=== PATIENT | female | born 1970 | race Caucasian/White ===

== ENCOUNTER 2020-11-04 05:11 | Inpatient (IN) | payer SELFPAY ==
[2020-11-04] MEDS ORDERED: Ondansetron PF 4 MG/2 ML Vial ONE (06:01)
[2020-11-04] MEDS ORDERED: Morphine 4 MG/ML VIAL ONE (06:01)
[2020-11-04 06:39] LABS: #Monocytes 0.6 10x3/uL (0.0-1.1); #Neutrophils 7.6 10x3/uL (1.5-8.4); %Basophils 0.3 % (0.0-2.0); %Eosinophils 0.4 % (0.0-6.0); %Lymphocytes 10.9 % (18.0-47.0); %Monocytes 6.2 % (0.0-10.0); %Neutrophils 81.9 % (40.0-75.0); Hemoglobin 10.6 g/dL (12.0-15.5); Mean Corpuscular HGB CONC 29.6 g/dL (32.0-36.0); Mean Corpuscular Hemoglobin 23.1 pg (27.0-33.0); Mean Platelet Volume 9.8 fl (7.4-10.4); Platelet Count 360 10x3/uL (150-450); RBC Distribution Width 18.6 % (11.5-14.5); Red Blood Cell (RBC) Count 4.59 10x6/uL (3.90-5.03); White Blood Cell (WBC) Count 9.2 10x3/uL (3.5-10.5)
[2020-11-04 06:41] LABS: Bilirubin Neg (Negative); Blood, Urine Negative (Negative); Clarity Cloudy (Clear); Glucose, Urine (Dipstick) Normal (Negative); Ketone, Urine Negative (Negative); Leukocyte 100 (Negative); Nitrite Negative (Negative); Protein, Urine (Dipstick) 30 mg/dl (Neg-Trace); Urobilinogen Normal mg/dL (Less than 2)
[2020-11-04 06:49] LABS: Bacteria/HPF 2+ HPF (None Seen); RBC/HPF 0-3 HPF (0-3)
[2020-11-04 06:50] LABS: Mucous/LPF 2+ LPF (<2+)
[2020-11-04 06:59] LABS: Platelet Morphology Comment Appears Adequate
[2020-11-04 07:00] LABS: Anisocytosis SLIGHT = 6-15 cells (100X) (0-5/hpf); Elliptocytes SLIGHT = 2-5 cells (100X) (0-1/hpf); Hypochromia SLIGHT = 6-15 cells (100X) (0-5/hpf); Macrocytosis SLIGHT = 6-15 cells (100X) (0-5/hpf); Microcytosis SLIGHT = 6-15 cells (100X) (0-5/hpf)
[2020-11-04 07:12] LABS: ALT (SGPT) 14 U/L (8-55); AST (SGOT) 19 U/L (5-34); Albumin 4.3 g/dL (3.5-5.0); Alkaline Phosphatase 86 U/L (40-110); Anion Gap 19 mmol/L (10-20); BUN (Urea Nitrogen) 16 mg/dL (7.0-18.7); Bilirubin, Total 0.3 mg/dL (0.2-1.2); Calc. Creatinine Clearance 0 mL/min (70-130); Calcium 9.3 mg/dL (7.8-10.44); Carbon Dioxide 21 mmol/L (22-29); Chloride 103 mmol/L (98-107); Globulin 3.7 g/dL (2.4-3.5); Glucose 150 mg/dL (70-105); Potassium 3.5 mmol/L (3.5-5.1); Sodium 139 mmol/L (136-145)
[2020-11-04] MEDS ORDERED: Piperacillin/Tazobactam 4.5 GM VIAL ONE (08:55)
[2020-11-04] MEDS ORDERED: Senokot S 8.6-50 MG TAB PO PRN (09:36)
[2020-11-04] MEDS ORDERED: Acetaminophen 325 MG TAB PO PRN (09:41)
[2020-11-04 12:10] VITALS: BMI 33.3
[2020-11-04] MEDS: Morphine 4 MG/ML VIAL SLOW IVP PRN ×2 (12:56→17:36)
[2020-11-04] MEDS: Ondansetron PF 4 MG/2 ML Vial IVP PRN (12:57)
[2020-11-04] MEDS: Sodium Chloride 0.9% 1,000 ML IV SCH ×2 (13:33→21:22)
[2020-11-04] MEDS: metroNIDAZOLE 500 MG in Premix Bag 1 BAG IVPB SCH ×2 (14:35→21:24)
[2020-11-04] MEDS ORDERED: Famotidine/PF 20 mg/2ml Vial SLOW IVP SCH (21:00)
[2020-11-04] MEDS: Cefepime 1 GM in Sodium Chloride 0.9% 100 ML IVPB SCH (21:23)
[2020-11-04] MEDS: Pantoprazole 40 MG VIAL IVP SCH (21:24)
[2020-11-05] MEDS: Morphine 4 MG/ML VIAL SLOW IVP PRN (01:33)
[2020-11-05 04:44] LABS: SARS-CoV-2 PCR by NAA Not Detected (NotDetected)
[2020-11-05 04:46] LABS: #Eosinphils 0.1 10x3/uL (0.0-0.5); #Monocytes 0.5 10x3/uL (0.0-1.1); #Neutrophils 3.1 10x3/uL (1.5-8.4); %Basophils 0.5 % (0.0-2.0); %Eosinophils 1.4 % (0.0-6.0); %Lymphocytes 17.2 % (18.0-47.0); %Monocytes 10.6 % (0.0-10.0); %Neutrophils 70.1 % (40.0-75.0); Hemoglobin 8.8 g/dL (12.0-15.5); Mean Corpuscular HGB CONC 29.2 g/dL (32.0-36.0); Mean Corpuscular Hemoglobin 23.2 pg (27.0-33.0); Mean Corpuscular Volume 79.4 fl (81.6-98.3); Mean Platelet Volume 9.7 fl (7.4-10.4); Platelet Count 251 10x3/uL (150-450); RBC Distribution Width 18.9 % (11.5-14.5); Red Blood Cell (RBC) Count 3.79 10x6/uL (3.90-5.03); White Blood Cell (WBC) Count 4.4 10x3/uL (3.5-10.5)
[2020-11-05 04:54] LABS: ALT (SGPT) 22 U/L (8-55); AST (SGOT) 32 U/L (5-34); Albumin 3.4 g/dL (3.5-5.0); Alkaline Phosphatase 82 U/L (40-110); Anion Gap 13 mmol/L (10-20); BUN (Urea Nitrogen) 13 mg/dL (7.0-18.7); Bilirubin, Total 0.4 mg/dL (0.2-1.2); Calc. Creatinine Clearance 116 mL/min (70-130); Carbon Dioxide 23 mmol/L (22-29); Chloride 107 mmol/L (98-107); Globulin 2.7 g/dL (2.4-3.5); Glucose 93 mg/dL (70-105); Potassium 3.7 mmol/L (3.5-5.1); Protein, Total 6.1 g/dL (6.0-8.3); Sodium 139 mmol/L (136-145)
[2020-11-05] MEDS: metroNIDAZOLE 500 MG in Premix Bag 1 BAG IVPB SCH ×3 (05:54→23:31)
[2020-11-05] MEDS: Morphine 2 MG/ML VIAL SLOW IVP PRN ×4 (06:46→21:12)
[2020-11-05] MEDS: Sodium Chloride 0.9% 1,000 ML IV SCH ×2 (08:00→18:14)
[2020-11-05] MEDS ORDERED: Pantoprazole 40 MG VIAL ONE (09:29)
[2020-11-05] MEDS: Cefepime 1 GM in Sodium Chloride 0.9% 100 ML IVPB SCH ×2 (09:46→21:20)
[2020-11-05] MEDS: Pantoprazole 40 MG VIAL IVP SCH ×2 (09:47→21:20)
[2020-11-05] MEDS ORDERED: PROPOFOL 20 ML ONE ×2 (16:56→17:56)
[2020-11-05] MEDS ORDERED: GoLYTELY 4,000 ml Bottle PO SCH (18:00)
[2020-11-05] MEDS ORDERED: Succinylcholine 200 MG/10 ml SYRINGE FS ONE (18:22)
[2020-11-05] MEDS: Ondansetron PF 4 MG/2 ML Vial IVP PRN (21:14)
[2020-11-05] MEDS: Pantoprazole 40 MG VIAL ONE ×2 (21:20→22:50)
[2020-11-06] MEDS: Sodium Chloride 0.9% 1,000 ML IV SCH ×3 (02:56→22:36)
[2020-11-06 05:20] LABS: #Eosinphils 0.1 10x3/uL (0.0-0.5); #Monocytes 0.4 10x3/uL (0.0-1.1); #Neutrophils 1.8 10x3/uL (1.5-8.4); %Basophils 0.3 % (0.0-2.0); %Eosinophils 1.7 % (0.0-6.0); %Lymphocytes 25.3 % (18.0-47.0); %Neutrophils 60.4 % (40.0-75.0); Hemoglobin 8.1 g/dL (12.0-15.5); Mean Corpuscular HGB CONC 28.8 g/dL (32.0-36.0); Mean Corpuscular Volume 79.8 fl (81.6-98.3); Mean Platelet Volume 8.6 fl (7.4-10.4); Platelet Count 195 10x3/uL (150-450); RBC Distribution Width 18.6 % (11.5-14.5); Red Blood Cell (RBC) Count 3.52 10x6/uL (3.90-5.03)
[2020-11-06 05:49] LABS: Anion Gap 11 mmol/L (10-20); BUN (Urea Nitrogen) 8 mg/dL (7.0-18.7); Calc. Creatinine Clearance 138 mL/min (70-130); Calcium 7.8 mg/dL (7.8-10.44); Carbon Dioxide 21 mmol/L (22-29); Chloride 109 mmol/L (98-107); Glucose 79 mg/dL (70-105); Potassium 3.4 mmol/L (3.5-5.1); Sodium 138 mmol/L (136-145)
[2020-11-06 06:03] LABS: Iron Binding Capacity, Total 341 mcg/dL (265-497); Lipase 19 U/L (8-78)
[2020-11-06] MEDS: metroNIDAZOLE 500 MG in Premix Bag 1 BAG IVPB SCH ×3 (06:33→22:37)
[2020-11-06 07:33] LABS: Iron 16 ug/dL (50-170)
[2020-11-06] MEDS: Ondansetron PF 4 MG/2 ML Vial IVP PRN (08:18)
[2020-11-06] MEDS: Cefepime 1 GM in Sodium Chloride 0.9% 100 ML IVPB SCH ×2 (08:19→20:02)
[2020-11-06] MEDS: Pantoprazole 40 MG VIAL IVP SCH ×2 (08:19→20:02)
[2020-11-06 12:00] LABS: Complement-C4 4.1 mg/dL (15-57)
[2020-11-06 13:43] LABS: dsDNA IgG Antibody 1.1 IU/mL (<10 Negative)
[2020-11-06] MEDS ORDERED: PROPOFOL 40 ML ONE (14:22)
[2020-11-06] MEDS ORDERED: Lidocaine 2% MPF 10 ML AMP (For Epidural Use) ONE (15:18)
[2020-11-06] MEDS ORDERED: Hydroxychloroquine Sulfate 200 MG TAB PO SCH (19:08)
[2020-11-07 04:56] LABS: #Monocytes 0.4 10x3/uL (0.0-1.1); %Basophils 0.3 % (0.0-2.0); %Eosinophils 0.6 % (0.0-6.0); %Lymphocytes 27.3 % (18.0-47.0); %Monocytes 10.7 % (0.0-10.0); %Neutrophils 60.8 % (40.0-75.0); Hemoglobin 7.8 g/dL (12.0-15.5); Mean Corpuscular HGB CONC 29.5 g/dL (32.0-36.0); Mean Corpuscular Hemoglobin 23.1 pg (27.0-33.0); Mean Corpuscular Volume 78.3 fl (81.6-98.3); Mean Platelet Volume 9.4 fl (7.4-10.4); Platelet Count 223 10x3/uL (150-450); RBC Distribution Width 18.4 % (11.5-14.5); Red Blood Cell (RBC) Count 3.37 10x6/uL (3.90-5.03); White Blood Cell (WBC) Count 3.3 10x3/uL (3.5-10.5)
[2020-11-07 05:07] LABS: Anion Gap 13 mmol/L (10-20); BUN (Urea Nitrogen) 7 mg/dL (7.0-18.7); Calc. Creatinine Clearance 129 mL/min (70-130); Calcium 8.2 mg/dL (7.8-10.44); Carbon Dioxide 22 mmol/L (22-29); Chloride 109 mmol/L (98-107); Glucose 104 mg/dL (70-105); Potassium 3.6 mmol/L (3.5-5.1); Sodium 140 mmol/L (136-145)
[2020-11-07] MEDS: metroNIDAZOLE 500 MG in Premix Bag 1 BAG IVPB SCH ×2 (05:09→14:37)
[2020-11-07] MEDS: Cefepime 1 GM in Sodium Chloride 0.9% 100 ML IVPB SCH (08:19)
[2020-11-07] MEDS: Pantoprazole 40 MG VIAL IVP SCH (08:20)
[2020-11-07] MEDS ORDERED: Hydroxychloroquine Sulfate 200 MG TAB PO SCH (09:00)
[2020-11-07 11:50] VITALS: BP 178/86; TEMP 98.5
[2020-11-07] MEDS: Sodium Chloride 0.9% 1,000 ML IV SCH (13:32)
== END 2020-11-07 14:20 | disposition home or self-care (01) | DRG 392 ==
LOC: CSHERS 05:11 → CSHTELE 09:48
PROVIDERS: ADMIT Internal Medicine; ATTEND Internal Medicine
PROC: 0DB98ZX Excision of Duodenum, Via Natural or Artificial Opening Endoscopic, Diagnostic (ICD-10-PCS; 2020-11-05)
PROC: 0DJD8ZZ Inspection of Lower Intestinal Tract, Via Natural or Artificial Opening Endoscopic (ICD-10-PCS; principal; 2020-11-06)
DX: K29.80 Duodenitis without bleeding (principal); K64.4 Residual hemorrhoidal skin tags; K64.8 Other hemorrhoids; M32.9 Systemic lupus erythematosus, unspecified; E03.9 Hypothyroidism, unspecified; F41.9 Anxiety disorder, unspecified; F32.9 Major depressive disorder, single episode, unspecified; F17.210 Nicotine dependence, cigarettes, uncomplicated; R51.9 Headache, unspecified; D64.9 Anemia, unspecified; Z20.822 Contact with and (suspected) exposure to COVID-19
CPT/HCPCS: 36415; 74177; 80048; 80053; 81003; 81015; 82728; 83540; 83550; 83690; 85025; 85652; 86140; 86160; 86225; 87635; 88305; 96365; 96366; 96375; C9113; J0692; J2270; J2405; J2543; J2704; J3490; U0003; U0005